=== PATIENT | male | born 1990 | race Caucasian/White ===

== ENCOUNTER 2021-07-07 16:33 | Emergency (ER) | payer BC ==
[~2021-07-07] VITALS: Ht 185.4 cm; Wt 75.0 kg
[2021-07-07 16:47] VITALS: TEMP 98.4
[2021-07-07 19:11] VITALS: BP 134/72; PULSE 80
== END 2021-07-07 19:11 | disposition home or self-care (01) ==
LOC: COL.ER 16:33
DX: M25.561 Pain in right knee (principal); X58.XXXA Exposure to other specified factors, initial encounter